=== PATIENT | male | born 1995 | race Caucasian/White ===

== ENCOUNTER 2018-04-26 12:18 | Emergency (ER) | payer BC ==
[2018-04-26 12:30] VITALS: BP 132/64; PULSE 77; TEMP 98.6; BMI 27.5
--- NOTE | 2018-04-26 12:51 | PDOC ---
History of Present Illness - General Chief Complaint: Penile Drainage Stated Complaint: GENITAL PAIN - History of Present Illness Initial Comments: 22-year-old male presents for evaluation of atraumatic onset of right testicular pain 3 days. He describes his pain as a constant ache without any exacerbating or relieving factors. No other associated symptoms. 04/26/18 12:49 Past History - Past Medical History Allergies/Adverse Reactions: Allergies Allergy/AdvReac Type Severity Reaction Status Date / Time No Known Allergies Allergy Verified 04/26/18 12:26 Home Medications: Ambulatory Orders NK [No Known Home Medication] 04/26/18 CVA: No COPD: No DVT: No Dementia: No - Immunization History Immunization Up to Date: Yes - Suicide/Smoking/Psychosocial Hx Smoking History: Never smoked Have you smoked in the past 12 months: No Information on smoking cessation initiated: No Hx Alcohol Use: No Drug/Substance Use Hx: No Substance Use Type: None Review of Systems - Review of Systems : Yes: Testicular Pain All Other Systems: Reviewed and Negative *Physical Exam - Vital Signs Last Vital Signs Temp Pulse Resp BP Pulse Ox 98.6 F 77 16 132/64 97 04/26/18 12:27 04/26/18 12:27 04/26/18 12:27 04/26/18 12:27 04/26/18 12:27 - Physical Exam Comments: The abdomen is soft and nontender he external genitalia is normal there is no testicular or epididymal tenderness there is no decrease in pain with testicular elevation. There is no inguinal adenopathy 04/26/18 12:50 ED Treatment Course - RADIOLOGY Radiology Studies Ordered: Category Date Time Status SCROTUM AND CONTENTS US [US] Stat Ultrasound 04/26/18 12:45 Ordered Medical Decision Making - Medical Decision Making Torsion is unlikely a get an ultrasound anyway and treat him for epididymitis 04/26/18 12:51 04/26/18 16:21 This patient has a normal ultrasound and a normal examination I will have her follow-up with urology for further evaluation and treatment options. There is nothing emergent today. *DC/Admit/Observation/Transfer Diagnosis at time of Disposition: Testicle pain - Discharge Dispostion Disposition: HOME Condition at time of disposition: Stable Decision to Admit order: No - Referrals Referrals: Eyad Merlos MD [Non Staff, Medical] - Mara Lerma MD [Non Staff, Medical] - Zafar Mcclendon MD [Non Staff, Medical] - Mark Neely MD [Non Staff, Medical] - Forest Briggs MD [Non Staff, Medical] - Jaime Sheikh [Non Staff, Medical] - Todd Posadas MD [Non Staff, Medical] - Jose Johnson MD [Non Staff, Medical] - Stanley Allen, S.A. [Other Staff,non-medical] - - Patient Instructions Printed Discharge Instructions: DI for Testicular Pain Additional Instructions: Return to the emergency room should her symptoms worsen or go unresolved. In the meantime its best few to follow-up with urology for further evaluation and treatment options. Your examination and your ultrasound today were all normal. - Post Discharge Activity
== END 2018-04-26 16:24 | disposition home or self-care (01) ==
LOC: JER 12:18 → JERFT 12:18
DX: N50.811 Right testicular pain (principal)
CPT/HCPCS: 76870-TC; 99281-25

== ENCOUNTER 2021-04-15 13:49 | Emergency (ER) | payer BC ==
[2021-04-15 13:56] VITALS: TEMP 98; BMI 30.5
[2021-04-15] MEDS ORDERED: KETOROLAC TROMETHAMINE 30 MG/1 ML VIAL IVPUSH ONE (14:46)
[2021-04-15] MEDS ORDERED: SODIUM CHLORIDE 0.9% 500 ML INFUS.BAG IV ONE (14:46)
[2021-04-15] MEDS ORDERED: ONDANSETRON 4 MG/2 ML VIAL IVPUSH ONE (14:46)
[2021-04-15] MEDS ORDERED: KETOROLAC TROMETHAMINE 60 MG/2 ML VIAL ONE (14:55)
[2021-04-15] MEDS ORDERED: ONDANSETRON 4 MG/2 ML VIAL ONE (14:58)
[2021-04-15 15:28] LABS: BASO % 0.3 % (0-2.0); HEMATOCRIT 45.1 % (35.4-49); HEMOGLOBIN 15.6 GM/dL (11.7-16.9); LYMPH % 3.8 % (8-40); MCH 31.3 pg (25.7-33.7); MCHC 34.5 g/dl (32.0-35.9); MEAN CELL VOLUME 90.7 fl (80-96); MEAN PLT VOLUME 6.8 fl (7.5-11.1); MONO % 3.4 % (3.8-10.2); NEUT % 92.5 % (42.8-82.8); PLATELET COUNT 319 10^3/uL (134-434); RBC 4.97 M/mm3 (4.00-5.60); RDW 13.5 % (11.9-15.9); WHITE BLOOD COUNT 13.8 K/mm3 (4.0-10.0)
[2021-04-15 15:31] LABS: EPI CELLS 9 /uL (0-25.1); HYALINE CASTS 0 /uL (0-3.1); URINE APPEARANCE CLEAR; URINE BACTERIA 20 /uL (0-1359); URINE BILIRUBIN NEGATIVE (NEGATIVE); URINE COLOR YELLOW; URINE GLUCOSE (UA) NEGATIVE (NEGATIVE); URINE KETONE 2+ (NEGATIVE); URINE LEUK ESTERASE NEGATIVE (NEGATIVE); URINE NITRITE NEGATIVE (NEGATIVE); URINE PROTEIN NEGATIVE (NEGATIVE); URINE RBC 16 /uL (0-23.9); URINE UROBILINOGEN 0.2 mg/dL (0.2-1.0); URINE WBC 1 /uL (0-25.8)
[2021-04-15 15:47] LABS: ALBUMIN 4.4 g/dl (3.4-5.0); BLOOD UREA NITROGEN 10.5 mg/dL (7-18); CALCIUM 9.3 mg/dL (8.5-10.1)
[2021-04-15 15:48] LABS: ANISOCYTOSIS 0; HELMET CELLS 0; HOWELL-JOLLY BODIES 0; MACROCYTOSIS 0; OVALOCYTE 0; PLATELET ESTIMATE NORMAL; ROULEAU 0; SICKELED CELLS 0; TARGET CELLS 0; TEAR DROP CELLS 0; TOXIC GRANULATION 0
[2021-04-15 15:52] LABS: BILIRUBIN,TOTAL 0.5 mg/dL (0.2-1)
[2021-04-15 18:14] VITALS: BP 142/80; PULSE 90
== END 2021-04-15 18:12 | disposition home or self-care (01) ==
LOC: JER 13:49
PROC: 3E0333Z Introduction of Anti-inflammatory into Peripheral Vein, Percutaneous Approach (ICD-10-PCS; principal; 2021-04-15)
PROC: 3E033GC Introduction of Other Therapeutic Substance into Peripheral Vein, Percutaneous Approach (ICD-10-PCS; 2021-04-15)
DX: R10.9 Unspecified abdominal pain (principal)
CPT/HCPCS: 36415; 74176-TC; 80053; 81003; 85025; 87086; 99284-25